=== PATIENT | female | born 2000 | race Hispanic/Latino ===

== ENCOUNTER 2022-05-16 22:21 | Emergency (ER) | payer OTHER ==
[~2022-05-16] VITALS: Ht 152.4 cm; Wt 59.0 kg
[2022-05-16] MEDS ORDERED: ACETAMINOPHEN500 MG PO (23:15)
[2022-05-16] MEDS ORDERED: IBUPROFEN200 MG PO (23:15)
== END 2022-05-17 01:00 | disposition home or self-care (01) ==
LOC: FSED 22:35
DX: S39.012A Strain of muscle, fascia and tendon of lower back, initial encounter (principal); V43.52XA Car driver injured in collision with other type car in traffic accident, initial encounter; Y92.488 Other paved roadways as the place of occurrence of the external cause; F32.A Depression, unspecified
CPT/HCPCS: 72100; 99283

== ENCOUNTER 2024-09-13 20:39 | Emergency (ER) | payer SELFPAY ==
[~2024-09-13] VITALS: Ht 152.4 cm; Wt 59.0 kg
[~2024-09-13 20:39] MED LIST: ACETAMINOPHEN500 MG PO; IBUPROFEN200 MG PO
[2024-09-13 20:40] VITALS: PULSE 72; RESP 18; TEMP 98.1; O2SAT 98
[2024-09-13] MEDS: IBUPROFEN 600 MG TAB PO STA (21:35)
[2024-09-13] MEDS: ACETAMINOPHEN 325 MG TAB PO ONE (21:36)
[2024-09-13] MEDS ORDERED: IBUPROFEN800 MG PO (21:47)
== END 2024-09-13 21:51 | disposition home or self-care (01) ==
LOC: FSED 20:46
DX: R42 Dizziness and giddiness (principal); R07.89 Other chest pain; M94.0 Chondrocostal junction syndrome [Tietze]; F41.9 Anxiety disorder, unspecified; F32.A Depression, unspecified
CPT/HCPCS: 71046; 85379; 93005; 99284